=== PATIENT | male | born 1945 | race Caucasian/White ===

== ENCOUNTER 2019-02-01 13:02 | Day surgery (SDC) | payer MEDICARE, OTHER ==
[~2019-02-01] VITALS: Ht 177.8 cm; Wt 77.9 kg
[~2019-02-01 13:02] MED LIST: ASPI325 PO; ASPI81CH PO; Aspirin EC81 MG PO; CEFD300; CLOP75 PO; CYAN100 PO; Crestor20 MG PO; FISH OIL PO; FISH1000 PO; LUTEIN20 MG PO; METO25ER PO; MULT50L; MULVITMIND PO; Multiple Vitam1 EAC1 PO; NITR.4SL SL; SIMV40 PO; Sudogest60 MG PO; Toprol Xl25 MG PO; VITAMIN D-32000 UNIT PO; VITAMIN D31000 UNIT PO; Zocor20 MG PO
== END 2019-02-01 15:30 | disposition home or self-care (01) ==
LOC: ORSCSDS 13:02
PROVIDERS: Ophthalmology
PROC: 08RK3JZ Replacement of Left Lens with Synthetic Substitute, Percutaneous Approach (ICD-10-PCS; principal; 2019-02-01 14:30)
DX: H25.12 Age-related nuclear cataract, left eye (principal); H21.81 Floppy iris syndrome; I10 Essential (primary) hypertension; Z79.899 Other long term (current) drug therapy; Z79.82 Long term (current) use of aspirin
CPT/HCPCS: J2001; J2250; J3010; J7120; V2632

== ENCOUNTER 2019-05-17 10:16 | Inpatient (IN) | payer MEDICARE, OTHER ==
[~2019-05-17] VITALS: Ht 177.8 cm; Wt 80.6 kg
[2019-05-17 10:43] LABS: BASOPHILS ABSOLUTE AUTO 0.07 K/mm3 (0.00-0.23); BASOPHILS PERCENT AUTO 1 % (0-2); EOSINOPHILS ABSOLUTE AUTO 0.16 K/mm3 (0.00-0.68); EOSINOPHILS PERCENT AUTO 1 % (0-6); Hematocrit 35.6 % (37.0-53.0); Hemoglobin 11.8 g/dL (13.5-17.5); IMMATURE GRAN ABSOLUTE AUTO 0.06 K/mm3 (0.00-0.10); IMMATURE GRAN PERCENT AUTO 1 % (0-1); LYMPHOCYTES ABSOLUTE AUTO 1.84 K/mm3 (0.84-5.20); LYMPHOCYTES PERCENT AUTO 15 % (21-46); MONOCYTES ABSOLUTE AUTO 0.64 K/mm3 (0.16-1.47); MONOCYTES PERCENT AUTO 5 % (4-13); Mean Corpuscular HGB Conc 33.1 g/dL (31.5-36.5); Mean Corpuscular Volume 93 fL (80-100); Mean Platelet Volume 10.8 fL (9.1-12.4); NEUTROPHILS ABSOLUTE AUTO 9.73 K/mm3 (1.96-9.15); NEUTROPHILS PERCENT AUTO 78 % (41-73); Platelet Count 200 K/mm3 (150-400); RDW Coefficient Variation 12.8 % (11.7-14.2); RDW Standard Deviation 43.7 fL (35.1-46.3); Red Blood Cell Count 3.81 M/mm3 (4.30-5.90)
[2019-05-17 11:05] LABS: Alanine Aminotransfer (ALT/SGP 23 U/L (12-78); Albumin, Blood 3.4 g/dL (3.4-5.0); Albumin/Globulin Ratio 1.2 (0.8-1.8); Alk Phos 58 U/L (50-136); Anion Gap 8 mmol/L (6-16); Aspartate Aminotrans (AST/SGOT 22 U/L (12-37); Bilirubin, Total 0.6 mg/dL (0.1-1.0); Blood Urea Nitrogen 42 mg/dL (8-24); Bun/Creatinine Ratio 38.9 (12.0-20.0); CO2, Blood 26 mmol/L (21-32); Calcium, Blood 8.7 mg/dL (8.5-10.1); Chloride, Blood 108 mmol/L (98-108); Creatinine, Blood 1.08 mg/dL (0.60-1.20); Globulin, Blood 2.9 g/dL (2.2-4.0); Glomerular Filtration Rate >60 (60-); Glucose, Blood 158 mg/dL (70-99); Potassium, Blood 5.2 mmol/L (3.5-5.5); Sodium, Blood 142 mmol/L (136-145); Total Protein, Blood 6.3 g/dL (6.4-8.2); Troponin I 0.021 ng/mL (0.000-0.040)
[2019-05-17] MEDS ORDERED: FISH OIL 1,2001 EAC1 PO (13:00)
[2019-05-17] MEDS ORDERED: METAMUCIL0.4 GM PO (13:00)
[2019-05-17] MEDS ORDERED: Co Q-1010 MG PO (13:00)
[2019-05-17] MEDS ORDERED: DOCU100 PO (13:00)
[2019-05-17 13:17] LABS: Source, Urine Voided
[2019-05-17 13:21] LABS: Bilirubin, Urine Neg (Neg); Blood, Urine Neg (Neg); Glucose Qualitative, Urine Neg (Neg); Ketones, Urine 2+ (Neg); Leukocyte Esterase, Urine 1+ (Neg); Nitrite, Urine Neg (Neg); Protein, Urine Neg (Neg); Urobilinogen, Urine NORM (Normal)
[2019-05-17 14:02] LABS: Appearance, Urine Clear (Clear); Color, Urine Yellow (P-Yellow)
[2019-05-17 14:08] LABS: Bacteria Few /hpf; Red Blood Cells, Urine Not Seen /hpf (0-2); Squamous Epithelial Cells Rare /hpf (Few); White Blood Cells, Urine 0-2 /hpf (0-5)
[2019-05-17 19:27] LABS: Hematocrit 25.1 % (37.0-53.0); Hemoglobin 8.4 g/dL (13.5-17.5)
[2019-05-17 19:51] LABS: BASOPHILS ABSOLUTE AUTO 0.05 K/mm3 (0.00-0.23); BASOPHILS PERCENT AUTO 1 % (0-2); EOSINOPHILS ABSOLUTE AUTO 0.08 K/mm3 (0.00-0.68); EOSINOPHILS PERCENT AUTO 1 % (0-6); Hematocrit 25.2 % (37.0-53.0); Hemoglobin 8.3 g/dL (13.5-17.5); IMMATURE GRAN ABSOLUTE AUTO 0.02 K/mm3 (0.00-0.10); IMMATURE GRAN PERCENT AUTO 0 % (0-1); LYMPHOCYTES ABSOLUTE AUTO 2.42 K/mm3 (0.84-5.20); LYMPHOCYTES PERCENT AUTO 27 % (21-46); MONOCYTES ABSOLUTE AUTO 0.66 K/mm3 (0.16-1.47); MONOCYTES PERCENT AUTO 7 % (4-13); Mean Corpuscular HGB Conc 32.9 g/dL (31.5-36.5); Mean Corpuscular Volume 94 fL (80-100); NEUTROPHILS ABSOLUTE AUTO 5.89 K/mm3 (1.96-9.15); NEUTROPHILS PERCENT AUTO 65 % (41-73); Platelet Count 167 K/mm3 (150-400); RDW Coefficient Variation 12.9 % (11.7-14.2); RDW Standard Deviation 44.8 fL (35.1-46.3); Red Blood Cell Count 2.68 M/mm3 (4.30-5.90); White Blood Cell Count 9.12 K/mm3 (4.00-11.30)
[2019-05-17 20:02] LABS: Magnesium, Blood 1.8 mg/dL (1.6-2.4); Troponin I 0.049 ng/mL (0.000-0.040)
[2019-05-17 20:11] LABS: International Normalized Ratio 1.14; Prothrombin Time Results 11.9 Sec (9.7-11.5)
--- NOTE | 2019-05-17 22:10 | NUR ---
MD CALL AFTER REVIEWING THE CHART, AN ORDER WAS FOUND FOR A STAT GI CONSULT. THIS CHARGE NURSE CALLED THE CURRENT HOSPITALIST TO ADVISE THAT THE STAT ORDER WAS NOT CARRIED OUT BECAUSE THERE IS NO SCHEDULED GI COVERAGE THIS SHIFT. ADDITIONALLY, IT WAS COMMUNICATED THAT THE PT HAS NOT HAD ANY FURTHER COFFEE GROUND EMESIS, IS NOT HYPOTENSIVE (MAP: 69) AND WAS DENYING COMPLAINTS. THE HOSPITALIST WAS ENCOURAGED TO MAKE A [id number] CALL IF THE NEED WAS IDENTIFIED URGENT TO SEE IF A GI DOCTOR WOULD BE WILLING TO COME IN WHILE NOT BRICK AND TILE MAKING MACHINE OPERATOR. MAYELIN MCCLOUD STATED "IT CAN WAIT UNTIL MORNING UNLESS I DISCUSS THIS WITH EDGARD AND CALL YOU BACK TO LET YOU KNOW". NOTIFIED PRIMARY RN ANGELES TO PROCEED WITH ROUTINE AM CONSULT FOR Tuesday.
--- NOTE | 2019-05-17 22:29 | NUR ---
TRANSFER NOTE REPORT RECIEVED FROM MARY SULLIVAN AT APPROX 1935, PATIENT THEN TRANSFERED DOWN WITH BELONGINGS AND SEVERAL FAMILY MEMBERS. PATIENT ALERT AND JOKING WITH STAFF UPON TRANSFER TO THE UNIT. PATIENT AND FAMILY ORIENTED TO THE ROOM, UNIT, AND CALL LIGHT. PATIENT HAS HAD NO BM'S OR EMEISIS SINCE TRANSFER TO THE ROOM. PATIENT DENIES ANY JAW PAIN, DIZZINESS, OR LIGHT HEADEDNESS. DR BELL INTO SEE PATIENT AND TALK WITH PATIENT AND FAMILY. IV FLUIDS GIVEN PER ORDERS. PATIENT ABLE TO AMBULATE TO THE BATHROOM WITH SBA. PATIENT DID REPORT MILD CHEST DISCOMFORT AND A HEADACHE AFER AMBULATING, BOTH OF WHICH QUICKLY RESOLVED AFTER A FEW MINUTES OF REST. PATIENT CURRENTLY RECIEVING ONE UNIT OF PRBC'S AND APPEARS TO BE TOLERATING IT WELL. PATIENT APPEARS TO BE NAPING AT THIS TIME. PRESENT AT THE BEDSIDE. WILL CONTINUE TO MONITOR.
--- NOTE | 2019-05-18 00:06 | NUR ---
UPDATE PATIENT AND HAD BEEN EDUCATED THAT DUE TO PATIENT HAVING A LOW BLOOD PRESSURE'S A SAFF MEMEBER NEEDED TO BE WITH PATIENT BEFORE GETTING UP. RN WALKED IN TO FIND HAD ASSISTED PATIENT UP OUT OF BED AND PATIENT WAS STANDING AT THE BEDSIDE USING THE URINAL. ONCE PATIENT WAS DONE USING THE URINAL HE BECAME VERY PALE, CLAMMY, AND DIAPHORETIC AND STARTED TO GET VERY UNSTEADY ON HIS FEET. PATIENT ASSISTED BACK TO THE BED AND STAFF HELPED PATIENT TO LAY DOWN. CHARGE NURSE VALERIY CORTEZ NOTIFIED AND PRESENT IN ROOM AT THIS TIME. PATIENT ALERT BUT SLOW TO RESPOND. VITAL SIGNS OBTAINED AND CHARTED. PATIENT STATES THAT HE FEELS VERY TIRED NOW. PATIENT CURRENTLY RESTING IN BED, COLOR IS BETTER AND PATIENT IS LESS CLAMMY AND DIAPHORETIC. PATIENT REPORTS HE IS FEELING BETTER BUT HE IS STILL VERY TIRED. BOTH PATIENT AND EDUCATED, ONCE AGAIN, ON THE NEED TO WAIT FOR STAFF ASSSITANCE BEFORE GETTING UP AND THAT FROM NOW ON IT JO BE BEST IF PATIENT WAS BEDREST AND USED THE URINAL IN THE BED. BED ALARM ON. EDUCATION TO FAMILY AND PATIENT GIVEN. WILL CONTINUE TO MONITOR.
[2019-05-18 01:41] LABS: Hematocrit 24.5 % (37.0-53.0); Hemoglobin 8.1 g/dL (13.5-17.5)
[2019-05-18 01:45] LABS: Anion Gap 7 mmol/L (6-16); Blood Urea Nitrogen 59 mg/dL (8-24); CO2, Blood 23 mmol/L (21-32); Calcium, Blood 7.5 mg/dL (8.5-10.1); Chloride, Blood 117 mmol/L (98-108); Creatinine, Blood 0.92 mg/dL (0.60-1.20); Glomerular Filtration Rate >60 (60-); Glucose, Blood 102 mg/dL (70-99); Potassium, Blood 4.5 mmol/L (3.5-5.5); Sodium, Blood 147 mmol/L (136-145)
--- NOTE | 2019-05-18 02:10 | NUR ---
CALL TO DR ANTHONY CRUZ CALLED AND NOTIFIED OF THE HGB RESULTS AFTER THE TRANSFUSION OF THE ONE UNIT OF PRBC'S. NO NEW ORDERS RECIEVED.
[2019-05-18 05:36] LABS: Hematocrit 22.5 % (37.0-53.0); Hemoglobin 7.5 g/dL (13.5-17.5)
--- NOTE | 2019-05-18 06:50 | NUR ---
UPDATE ATTEMPTED TO CALL DR HERNANDEZ DUE TO HER HAVING ALREADY PUT AN ORDER IN FOR A BLOOD TRANSFUSION. UNABLE TO GET AHOLD OF HER. DR CRUZ WAS THEN CALLED AND NOTIFIED THAT PATIENT'S HEART RATE IS RUNNING IN THE 130'S-140'S WITH MINIMAL MOVEMENT, EVEN WHEN PATIENT SIMPLY USING THE URINAL IN THE BED. ALSO NOTIFIED THT PATIENT REPORTS BEING VERY TIRED AND FEELING WEAK. DR CRUZ ALSO NOTIFIED THAT THERE IS NO GI COVERGE UNTIL TONIGHT. NO ORDERS GIVEN AT THIS TIME.
--- NOTE | 2019-05-18 07:17 | NUR ---
SHIFT SUMMARY SECOND UNIT OF PRBC'S STARTED PER ORDERS. PATIENT CURRENTLY APPEARS TO BE RESTING IN BED. PATIENT PROVIDED WITH A FAN FOR COMFORT AND SCD'S REMOVED PER PATIENT REQUEST FOR A BREAK. CALL LIGHT WITHIN REACH. REPORT GIVEN TO ONCOMING RN.
--- NOTE | 2019-05-18 07:40 | NUR ---
INITIAL ASSESSMENT: PATIENT IS RESTING SUPME WITHH EYES CLOSED. PT EASILY AWAKENS WITH VERBAL STIUMLI. PT DENIES PAIN OR NAUSEA AT THIS TIME. PT STATES HE IS UNABLE TO MOVE AROUND IN THE BED WITHOUT GETTING SOB OR DIZZY. PER NOC RN PT WAS ATTEMPTING TO VOID AT THE BEDSIDE AND HAD A SYNCOPAL EPISODE. PT DENEIS CHEST PAIN AT THIS TIME. HRR, ST IN THE 120S. PER TELEMETRY WHEN PATIENT IS MOVING AROUND IN BED HIS HEART RATE IS GOING UP INTO THE 130S-140S. LS CTA, BIOX WNL ON RA. SOB WITH ANY EXERTION. PT DENIES COUGH. BT+. PPP. NO EDEMA NOTED. BLOOD PRESURE IS LOW,89/55. UNIT OF PRBCS INFUSING, PT TOLERATING WELL. PT DENIES NEEDS AT THIS TIME. CALL LIGHT IN REACH, WILL CONTINUE TO MONITOR.
--- NOTE | 2019-05-18 07:50 | NUR ---
CALL PLACED TO DR. HERNANDEZ FOR UPDDATE ON PTS CONDITION. NOC RN ATTEMPTED TO CALL IN GI CONSULT, PER ANSWERING SERVICE THEY WILL NOT ACCEPT THE CONSULT BECAUSE THERE IS NO PHYSCIAN FORMING PROCESS LINE WORKER UNTIL TONIGHT. DR. HERNANDEZ WOULD LIKE ME TO CALL THE OFFICE WHEN IT OPENS AND CALRIFY WHICH GI PHYSCIAN IS FORMING PROCESS LINE WORKER AND WHEN.
--- NOTE | 2019-05-18 08:15 | NUR ---
CALL PLACED TO DR. ARELLANO'S OFFICE, THEY INFORMED THIS RN DDR. ARELLANO IS ROOF PAINTER ALL DAY. CALL PLACED TO DDR. ARELLANO'S CELL PHONE, RN ANSWERED, STATES MD IS IN THE MIDDLE OF A PROCEDURE. CONSULT INFO GIVEN TO RN. I ALSO INFORMED THE RN THE PATIENT IS VERY SYMPTOMATIC WITH ANY MOVEMENT. FAMILY IS A BEDSIDE, VERY CONCERNED. FAMILY UPDATED RE:PLAN OF CARE. PT IS RESTING WITH EYES CLOSED, RESP E/U. PT DENIES NEEDS AT THIS TIME. CALL LIGHT IN REACH.
--- NOTE | 2019-05-18 08:30 | NUR ---
DR. HERNANDEZ IS HERE TO SEE THE PATIENT. SEE NEW ORDERS
--- NOTE | 2019-05-18 09:45 | NUR ---
1ST UNIT OF PRBC'S DONE INFUSING. LAB CALLED TO COME AND DRAW THE PATIENTS LABS. FAMILY AT BEDSIDE, STILL CONCERNED. CALL PLACED TO [facility] TO FIND OUT WHEN DR. ARELLANO MAY BE BY TO SEE THE PATIENT. LUÍS FROM [facility] INFORMED ME DR. ARELLANO HAS OUTPATIENT PROCEDURES SCHEDULED UNTIL AROUND 2 PM TOADY. I DISCUSSED THIS WITH THE FAMILY. PT IS TEARFUL AT THIS TIME. PT REASSURED. FAMILY AND MEMBERS OF HIS CATHOLIC AT THE BEDSIDE.
--- NOTE | 2019-05-18 10:15 | NUR ---
IN COLLBORATION WITH THE ICU PLASTIC EXTRUDING MACHINE OPERATOR THEY ARE AGREEABLE TO TAKE THIS PATIENT INTO ICU 4. BECAUSE THE PATIENT IS VERY SYMPTOMATIC, WE FEEL MORE COMFORTABLE WITH THE PATIENT BEING WATCHED CLOSER.
--- NOTE | 2019-05-18 10:35 | NUR ---
LAB AT BEDSIDE TO DRAW. AFTER LABS DRAWN PT REQUESTING TO USE BED JOLLEY. PT HAD A LARGE LIQUID BLACK TARRY STOOL. REPORT GIVEN TO SURI HERNANDEZ. PT TAKEN TO ICU 4.
[2019-05-18 11:04] LABS: Hematocrit 25.6 % (37.0-53.0); Hemoglobin 8.3 g/dL (13.5-17.5)
--- NOTE | 2019-05-18 11:20 | NUR ---
ICU TRANSFER PT TO ICU 4 FROM PCU 4 VIA BED. PT DROWSY, AROUSES TO VERBAL STIMULI. PT TRANSFERRED TO ICU BED VIA SLIDER SHEET. PT DYSPNEIC WITH EXERTION. MONITOR SHOWS SINUS TACH WITH HR 120'S, SYSTOLIC PRESSURE 70'S. SPO2 97% ON ROOM AIR. LUNG SOUNDS CLEAR. 3RD UNIT OF PRBC STARTED. PROTONIX GTT INFUSING AT 10ML/HR. PTS TO BEDSIDE. WILL CONTINUE TO MONITOR CLOSELY.
--- NOTE | 2019-05-18 11:20 | NUR ---
TRANSFER TO MED: REPORT GIVEN TO ANN HERNANDEZ ON MEDICAL FLOOR FOR PT TO BE TRANSFERED. PT OUT THE DOOR.
--- NOTE | 2019-05-18 11:34 | NUR ---
HYPOTENSION CALL TO DR. HERNANDEZ WITH SBP IN 70'S. ORDERS RECEIVED FOR 500ML FLUID BOLUS AND CONSULT MILLING PLANER OPERATOR. DR ALVAREZ NOTIFIED. PT UPDATED ON PLAN OF CARE.
--- NOTE | 2019-05-18 12:15 | NUR ---
CALCIUM ON HOLD AT THIS TIME DUE TO LIMITED IV ACCESS AND COMPATIBILITY ISSUES. SPOKE WITH DR ALVAREZ AND WOULD RATHER HAVE BLOOD AND PROTONIX INFUSING AT THIS TIME. WILL ADMINISTER WHEN ABLE.
--- NOTE | 2019-05-18 12:16 | NUR ---
DR ANTONIO ALVAREZ TO BEDSIDE TO ASSESS PT. DISCUSSED PLAN OF CARE WITH PT AND FAMILY AT BEDSIDE.
--- NOTE | 2019-05-18 12:22 | NUR ---
BLOOD TRANSFUSION RATE INCREASED TO 500ML/HR PER DR ALVAREZ. PLAN TO RE-CHECK H&H 30 MIN AFTER BLOOD COMPLETE. LUNG SOUNDS REMAIN CLEAR. PT CONTINUES TO DENY SHORTNESS OF BREATH. WILL CONTINUE TO MONITOR CLOSELY.
--- NOTE | 2019-05-18 12:26 | NUR ---
CALL TO DR. ARELLANO TO UPDATE ON PT'S CONDITION. STATES HE WILL COME SEE THE PT.
--- NOTE | 2019-05-18 13:14 | NUR ---
DR. ARELLANO TO BEDSIDE TO EVAL PT AND DISCUSS PLAN OF CARE WITH PT AND PT'S FAMILY MEMBERS AT BEDSIDE.
--- NOTE | 2019-05-18 13:20 | NUR ---
DR. ARELLANO PLAN: AFTER DISCUSSION WITH PT AND FAMILY ABOUT RISKS/BENEFITS OF ENDOSCOPY, PLAN IS FOR ENDOSCOPY ON TUESDAY TO GIVE CHANCE TO CLEAR PLAVIX AND ASPIRIN THAT PT RECEIVED YESTERDAY. PLAN TO MANAGE PT WITH BLOOD TRANSFUSIONS NECESSARY WELL FLUID BOLUSES TO MAINTAIN BP UNLESS PT SHOWS SIGNS OF ZULEMA BLEEDING. MONITOR H&H Q6H. PT MAY HAVE WATER AD REAGAN AT THIS POINT.
[2019-05-18 13:47] LABS: Hematocrit 26.4 % (37.0-53.0); Hemoglobin 8.7 g/dL (13.5-17.5)
--- NOTE | 2019-05-18 14:49 | NUR ---
BM/HYPOTENSION BP DOWN TO 80 SYSTOLIC. PT JUST HAD LARGE LOOSE RUST COLORED BM. CALL TO DR ALVAREZ. ORDERS RECEIVED FOR 2 UNITS PRBC INFUSION NOW. CHECK H&H AFTER.
--- NOTE | 2019-05-18 17:41 | NUR ---
SHIFT SUMMARY PT CURRENTLY RECEIVING 3RD UNIT OF BLOOD SINCE ARRIVAL TO ICU. VITAL SIGNS STABLE WHILE RECEIVING BLOOD. PT CONTINUES TO DENY ANY SHORTNESS OF BREATH OR PAIN. PT HAD 1 BM SINCE BEING IN ICU WHICH WAS RUST COLORED. PT HAS HAD NO NAUSEA OR EMESIS. NS INFUSING AT 125ML/HR AND PROTONIX GTT AT 10ML/HR. PLAN FOR ENDOSCOPY TUESDAY UNLESS ZULEMA BLEEDING OCCURS. WILL CONTINUE TO MONITOR PT AND GIVE HANDOFF REPORT TO ONCOMING RN.
--- NOTE | 2019-05-18 20:30 | NUR ---
PT RESTING IN BED. NO COMPLAINTS. STATES HE FEELS BETTER THAN HE DID EARLIER IN THE DAY. SKIN IS PINK AND WARM. LAB HERE TO DRAW H&H. NO SIGNS OF BLEEDING THUS FAR. FAMILY AT BEDSIDE.
[2019-05-18 21:09] LABS: Hematocrit 31.4 % (37.0-53.0); Hemoglobin 10.3 g/dL (13.5-17.5)
[2019-05-19 01:16] LABS: Hematocrit 28.2 % (37.0-53.0); Hemoglobin 9.6 g/dL (13.5-17.5)
[2019-05-19 05:35] LABS: Albumin, Blood 2.1 g/dL (3.4-5.0); Anion Gap 6 mmol/L (6-16); Blood Urea Nitrogen 47 mg/dL (8-24); Bun/Creatinine Ratio 48.8 (12.0-20.0); CO2, Blood 20 mmol/L (21-32); Calcium, Blood 7.2 mg/dL (8.5-10.1); Chloride, Blood 122 mmol/L (98-108); Creatinine, Blood 0.96 mg/dL (0.60-1.20); Glomerular Filtration Rate >60 (60-); Glucose, Blood 94 mg/dL (70-99); Phosphorus, Blood 1.8 mg/dL (2.5-4.9); Sodium, Blood 148 mmol/L (136-145)
--- NOTE | 2019-05-19 05:50 | NUR ---
SUMMARY PT RESTING IN BED. HAD ONE BLACK STOOL AT SHIFT CHANGE AND NO OTHERS SINCE. VITAL SIGNS ARE IMPROVED. NO COMPLAINTS FROM THE PT.
[2019-05-19 06:48] LABS: BASOPHILS ABSOLUTE AUTO 0.04 K/mm3 (0.00-0.23); BASOPHILS PERCENT AUTO 0 % (0-2); EOSINOPHILS ABSOLUTE AUTO 0.11 K/mm3 (0.00-0.68); EOSINOPHILS PERCENT AUTO 1 % (0-6); Hematocrit 24.5 % (37.0-53.0); Hemoglobin 8.3 g/dL (13.5-17.5); IMMATURE GRAN ABSOLUTE AUTO 0.06 K/mm3 (0.00-0.10); IMMATURE GRAN PERCENT AUTO 1 % (0-1); LYMPHOCYTES ABSOLUTE AUTO 2.07 K/mm3 (0.84-5.20); LYMPHOCYTES PERCENT AUTO 20 % (21-46); MONOCYTES ABSOLUTE AUTO 0.83 K/mm3 (0.16-1.47); MONOCYTES PERCENT AUTO 8 % (4-13); Mean Corpuscular HGB Conc 33.9 g/dL (31.5-36.5); Mean Corpuscular Volume 86 fL (80-100); Mean Platelet Volume 10.9 fL (9.1-12.4); NEUTROPHILS ABSOLUTE AUTO 7.14 K/mm3 (1.96-9.15); NEUTROPHILS PERCENT AUTO 70 % (41-73); Platelet Count 93 K/mm3 (150-400); RDW Coefficient Variation 16.4 % (11.7-14.2); RDW Standard Deviation 50.9 fL (35.1-46.3); Red Blood Cell Count 2.86 M/mm3 (4.30-5.90); White Blood Cell Count 10.25 K/mm3 (4.00-11.30)
--- NOTE | 2019-05-19 11:25 | NUR ---
PT AWAKE IN BED THIS AM AT 0700, PT ASSESSED AT THIS TIME. PT DENIES ALL COMPLAINTS, DENIES C/O PAIN, NAUSEA. NO SIGNS OF ACUTE BLEEDING. BP ON HYPOTENSIVE SIDE BUT STABLE. PROTONIX GTT INFUSING. DR ARELLANO PLACED ORDERS FOR CLEAR LIQUIDS. PT TO HAVE EGD TOMORROW. DR ALVAREZ IN THIS AM; NAPHOS REPLACED, FLUIDS CHANGED TO LR. LAB UNABLE TO DRAW; WILL PLACE POWERGLIDE. LIPITOR HELD IT CAUSES MUSCLE PAIN, TOPROL HELD FOR LOW BP; DR KAUR NOTIFIED.
[2019-05-19 12:17] LABS: Hemoglobin 7.8 g/dL (13.5-17.5)
[2019-05-19 15:59] LABS: Hematocrit 22.8 % (37.0-53.0); Hemoglobin 7.8 g/dL (13.5-17.5)
--- NOTE | 2019-05-19 18:39 | NUR ---
PT TOLERATED CLEAR LIQUIDS TODAY. BP SLIGHTLY LOWER AT TIMES BUT STABLE WITH A MAP >65. PT DENIED ANY C/O PAIN OR NAUSEA. NO BM THIS SHIFT, NO SIGNS OF ACUTE BLEEDING. PT TO HAVE ICE AND WATER ONLY AFTER 2100, THEN NPO AFTER 0700 FOR EGD TOMORROW. PT RESTING IN BED NOW W/O COMPLAINTS.
--- NOTE | 2019-05-19 21:15 | NUR ---
PT RESTING IN BED. NO COMPLAINTS OR REQUESTS. DENIES PAIN AND SOB. NO SIGN OF BLEEDING OR DISTRESS.
[2019-05-19 21:48] LABS: Hematocrit 21.8 % (37.0-53.0); Hemoglobin 7.4 g/dL (13.5-17.5)
[2019-05-20 04:07] LABS: BASOPHILS ABSOLUTE AUTO 0.04 K/mm3 (0.00-0.23); BASOPHILS PERCENT AUTO 1 % (0-2); EOSINOPHILS ABSOLUTE AUTO 0.18 K/mm3 (0.00-0.68); EOSINOPHILS PERCENT AUTO 2 % (0-6); Hemoglobin 6.9 g/dL (13.5-17.5); IMMATURE GRAN ABSOLUTE AUTO 0.05 K/mm3 (0.00-0.10); IMMATURE GRAN PERCENT AUTO 1 % (0-1); LYMPHOCYTES ABSOLUTE AUTO 1.85 K/mm3 (0.84-5.20); LYMPHOCYTES PERCENT AUTO 25 % (21-46); MONOCYTES ABSOLUTE AUTO 0.66 K/mm3 (0.16-1.47); MONOCYTES PERCENT AUTO 9 % (4-13); Mean Corpuscular HGB 30.1 pg (26.0-34.0); Mean Corpuscular HGB Conc 34.5 g/dL (31.5-36.5); Mean Corpuscular Volume 87 fL (80-100); Mean Platelet Volume 10.9 fL (9.1-12.4); NEUTROPHILS PERCENT AUTO 63 % (41-73); Platelet Count 82 K/mm3 (150-400); RDW Coefficient Variation 16.4 % (11.7-14.2); RDW Standard Deviation 51.5 fL (35.1-46.3); Red Blood Cell Count 2.29 M/mm3 (4.30-5.90); White Blood Cell Count 7.48 K/mm3 (4.00-11.30)
[2019-05-20 04:21] LABS: Anion Gap 3 mmol/L (6-16); Blood Urea Nitrogen 19 mg/dL (8-24); Bun/Creatinine Ratio 20.2 (12.0-20.0); CO2, Blood 26 mmol/L (21-32); Calcium, Blood 7.3 mg/dL (8.5-10.1); Chloride, Blood 119 mmol/L (98-108); Creatinine, Blood 0.94 mg/dL (0.60-1.20); Glomerular Filtration Rate >60 (60-); Glucose, Blood 101 mg/dL (70-99); Magnesium, Blood 1.7 mg/dL (1.6-2.4); Potassium, Blood 3.5 mmol/L (3.5-5.5); Sodium, Blood 148 mmol/L (136-145)
--- NOTE | 2019-05-20 06:25 | NUR ---
SUMMARY PT RESTING IN BED. NO COMPLAINTS. NO SIGN OF BLEEDING. CALLED DR. ALVAREZ THIS AM ABOUT H&H DROP. NEW ORDERS FOR 1 UNIT OF PRBC'S RECEIVED. VITAL SIGNS HAVE BEEN STABLE.
--- NOTE | 2019-05-20 07:16 | NUR ---
ASSUMED CARE REPORT FROM MARY GUERRERO. PATIENT IS AWAKE, DENIES PAIN. 1 UNIT PRBC'S STARTED. NPO FOR EGD THIS MORNING.
--- NOTE | 2019-05-20 09:20 | NUR ---
MD VISIT DR. HERNANDEZ IN. FAMILY AT BEDSIDE
--- NOTE | 2019-05-20 09:38 | NUR ---
BERTHA RN, JONG RN AND JADA RN FROM [facility] HERE TO SET UP FOR EGD
--- NOTE | 2019-05-20 10:07 | NUR ---
05/20/19 Ale Elias History, Chart, Medications and Allergies reviewed before start of procedure.PATIENT DETERMINED TO BE ASA APPROPRIATE FOR PROPOFOL SEDATION PRIOR TO START OF PROCEDURE BY .MONITOR INTACT WITH CONTINUOUS PULSE OXIMETRY AND INTERMITTENT BP.3-LEAD EKG REVIEWED WITH PHYSICIAN PRIOR TO START OF PROCEDURE.O2 VIA N/C INTACT THROUGHOUT SEDATION/PROCEDURE.
--- NOTE | 2019-05-20 10:14 | NUR ---
EGD COMPLETED BY DR. ARELLANO. ULCER FOUND. DIET ADVANCED. STATUS CHANGED TO MED/NO TELE
--- NOTE | 2019-05-20 14:13 | NUR ---
REPORT GIVEN TO MARY VIRK. PATIENT MOVING TO 218 IN
--- NOTE | 2019-05-20 14:44 | NUR ---
PT TRANSFERED TO SURGICAL FLOOR FROM ICU AT THIS TIME. REPORTS NO DIZZINESS, N/V, OR PAIN. LUNG SOUNGS CLEAR. PERSONAL BELONGINGS IN RM WITH PT.
--- NOTE | 2019-05-20 16:45 | NUR ---
SHIFT SUMMARY PT TO SURGICAL FLOOR FROM ICU TODAY. REPORTS NO DIZZINESS, NAUSEA. PT INDEPENDENT IN RM. REPORTS FEELING MUCH BETTER THAN EARLIER TODAY. FAMILY IN RM. PT BEEN ASSISTED WITH ADL'S PRN.
[2019-05-21 05:32] LABS: BASOPHILS ABSOLUTE AUTO 0.03 K/mm3 (0.00-0.23); BASOPHILS PERCENT AUTO 0 % (0-2); EOSINOPHILS PERCENT AUTO 4 % (0-6); Hematocrit 24.8 % (37.0-53.0); Hemoglobin 8.1 g/dL (13.5-17.5); IMMATURE GRAN ABSOLUTE AUTO 0.05 K/mm3 (0.00-0.10); IMMATURE GRAN PERCENT AUTO 1 % (0-1); LYMPHOCYTES ABSOLUTE AUTO 1.52 K/mm3 (0.84-5.20); LYMPHOCYTES PERCENT AUTO 22 % (21-46); MONOCYTES ABSOLUTE AUTO 0.64 K/mm3 (0.16-1.47); MONOCYTES PERCENT AUTO 9 % (4-13); Mean Corpuscular HGB Conc 32.7 g/dL (31.5-36.5); Mean Corpuscular Volume 89 fL (80-100); NEUTROPHILS PERCENT AUTO 64 % (41-73); Platelet Count 95 K/mm3 (150-400); RDW Coefficient Variation 15.7 % (11.7-14.2); RDW Standard Deviation 51.1 fL (35.1-46.3); Red Blood Cell Count 2.79 M/mm3 (4.30-5.90); White Blood Cell Count 7.04 K/mm3 (4.00-11.30)
--- NOTE | 2019-05-21 05:55 | NUR ---
NEW ORDER PER DR. COHEN TO TRANSFUSE 1 UNIT RBC'S WITH INDICATION OF HGB <8.0. HOWEVER, HGB THIS MORNING STABLE AT 8.1. CALL PLACED TO HOSPITALIST TO CLARIFY ORDER. WILL CANCEL ORDER TO TRANSFUSE PER . PT'S VS STABLE T/O SHIFT.
--- NOTE | 2019-05-21 06:38 | NUR ---
SHIFT SUMMARY: PT STABLE THROUGHOUT SHIFT. VS WNL. INDEPENDENT IN ROOM. VOIDING WELL. PT REPORTS STILL FEELING WEAK WITH LONG DISTANCE AMBULATION. HGB 8.1 THIS MORNING. NEW ORDER FOR H&H LABS Q6. NO S/SX OF BLEEDING.
[2019-05-21 11:45] LABS: Hematocrit 26.8 % (37.0-53.0); Hemoglobin 8.8 g/dL (13.5-17.5)
[2019-05-21 12:05] LABS: Albumin, Blood 2.6 g/dL (3.4-5.0); Anion Gap 5 mmol/L (6-16); Blood Urea Nitrogen 13 mg/dL (8-24); Bun/Creatinine Ratio 14.8 (12.0-20.0); CO2, Blood 25 mmol/L (21-32); Calcium, Blood 8.2 mg/dL (8.5-10.1); Chloride, Blood 115 mmol/L (98-108); Creatinine, Blood 0.88 mg/dL (0.60-1.20); Glomerular Filtration Rate >60 (60-); Glucose, Blood 110 mg/dL (70-99); Magnesium, Blood 2.1 mg/dL (1.6-2.4); Phosphorus, Blood 2.8 mg/dL (2.5-4.9); Potassium, Blood 3.8 mmol/L (3.5-5.5); Sodium, Blood 145 mmol/L (136-145)
--- NOTE | 2019-05-21 13:12 | NUR ---
PT REPORTED ONE BM. BM WAS DARK, BLACK WITH SOME RED AROUND IT IN THE TOILET. PT COMPLAINT OF NO DIZZINESS OR LIGHT HEADEDNESS.
--- NOTE | 2019-05-21 17:36 | NUR ---
SHIFT SUMMARY PT ADMITTED FOR UPPER GI BLEED. ONE STOOL TODAY, BLACK WITH SOME RED. NO COMPLAINTS OF DIZZINESS OR FEELING LIGHT HEADED. C/O SMALL HEADACHE IN THE AM, PRN TYLENOL EFFECTIVE. PATIENT STATES FEELING MUCH BETTER. AMBULATING INDEPENDENTLY IN THE MARKS DURING SHIFT. H&H ELEVATED TO 8.8, REPEAT CHECK AT 1930 PER MD. PATIENT HAD GOOD APPETITE. ALERT AND ORIENTED DURING SHIFT.
[2019-05-21 19:35] LABS: Hematocrit 26.2 % (37.0-53.0); Hemoglobin 8.5 g/dL (13.5-17.5)
[2019-05-22 04:37] LABS: Hematocrit 25.9 % (37.0-53.0); Hemoglobin 8.5 g/dL (13.5-17.5)
--- NOTE | 2019-05-22 05:02 | NUR ---
SHIFT SUMMARY PT EATING AND DRINKING WELL. PT BEEN ASSISTED WITH ADL'S PRN. PT IND. PT MED FOR VAZQUEZ THIS AM, OTHERWISE SEEMED TO REST WELL OFF AND ON.
[2019-05-22] MEDS ORDERED: OMEPRAZOLE20 MG PO (11:45)
--- NOTE | 2019-05-22 12:28 | NUR ---
DR. ARELLANO NOTIFIED THAT PT HAS HAD SOME RESIDUAL BLACK TARRY STOOLS. DR. ARELLANO STATED TO CONTINUE WITH DISCHARGE HE EXPECTED PT TO HAVE SOME RESIDUAL BLOOD IN HIS STOOL. WILL CONTINUE WITH DISCHARGE PLANNED.
--- NOTE | 2019-05-22 12:49 | NUR ---
DISCHARGE PT PROVIDED WITH WRITTEN AND VERBAL DISCHARGE INSTRUCTIONS. PT WAS EDUCATED TO MONITOR STOOLS AND HE IS AWARE THAT HE MAY CONTINUE TO HAVE BLACK TARRY STOOLS FOR 4-5 DAYS. BUT TO NOTIFY HIS DOCTOR IF THIS DOES NOT SUBSIDE OR GETS WORSE. PT AND FAMILY REPORTED UNDERSTANDING INSTRUCTIONS. PT REQUESTED TO AMBULATE INSTEAD OF GOING OUT IN A W/C. PT PLEASED WITH DISCHARGE PLAN.
== END 2019-05-22 12:45 | disposition home or self-care (01) | DRG 377 ==
LOC: ER 10:16 → PCU 10:17 → MEDS 10:17 → PCU 19:33 → ICUE 05-18 05:49 → SURS 05-18 05:49 → ICUE 05-18 11:18 → SURS 05-20 14:44
PROVIDERS: Emergency Medicine; Internal Medicine; Internal Medicine Critical Care Medicine; Internal Medicine Gastroenterology; Nurse Practitioner Acute Care; ADMIT Internal Medicine
PROC: 30233N1 Transfusion of Nonautologous Red Blood Cells into Peripheral Vein, Percutaneous Approach (ICD-10-PCS; 2019-05-17)
PROC: 0DB68ZX Excision of Stomach, Via Natural or Artificial Opening Endoscopic, Diagnostic (ICD-10-PCS; principal; 2019-05-20 09:30)
DX: K25.4 Chronic or unspecified gastric ulcer with hemorrhage (principal); R57.8 Other shock; I21.A1 Myocardial infarction type 2; D62 Acute posthemorrhagic anemia; E87.0 Hyperosmolality and hypernatremia; E87.2 Acidosis; Z79.82 Long term (current) use of aspirin; Z87.891 Personal history of nicotine dependence; I25.10 Atherosclerotic heart disease of native coronary artery without angina pectoris; I95.9 Hypotension, unspecified; E86.0 Dehydration; K59.09 Other constipation; M19.90 Unspecified osteoarthritis, unspecified site; E83.51 Hypocalcemia; E78.00 Pure hypercholesterolemia, unspecified; D12.6 Benign neoplasm of colon, unspecified; E83.39 Other disorders of phosphorus metabolism; D69.6 Thrombocytopenia, unspecified; Z95.5 Presence of coronary angioplasty implant and graft; T39.015A Adverse effect of aspirin, initial encounter
CPT/HCPCS: 36415; 36430; 71046; 80048; 80053; 80069; 81001; 82330; 83735; 84100; 84484; 85014; 85018; 85025; 85610; 85730; 86850; 86900; 86901; 86923; 87086; 88305; 88342; 93005; 93010; 93306; 96360; 96361; 96376; 99285-25; A9270; C1751; C9113; G0378; J0610; J1650; J2704; J7030; J7040; J7050; J7060; J7120; P9016

== ENCOUNTER 2019-05-24 21:47 | Emergency (ER) | payer OTHER, MEDICARE ==
[~2019-05-24] VITALS: Ht 177.8 cm; Wt 76.2 kg
[~2019-05-24 21:47] MED LIST changes: +Co Q-1010 MG PO; +DOCU100 PO; +FISH OIL 1,2001 EAC1 PO; +METAMUCIL0.4 GM PO; +OMEPRAZOLE20 MG PO
[2019-05-24 22:40] LABS: BASOPHILS ABSOLUTE AUTO 0.06 K/mm3 (0.00-0.23); BASOPHILS PERCENT AUTO 1 % (0-2); EOSINOPHILS ABSOLUTE AUTO 0.43 K/mm3 (0.00-0.68); EOSINOPHILS PERCENT AUTO 6 % (0-6); Hematocrit 29.7 % (37.0-53.0); Hemoglobin 9.6 g/dL (13.5-17.5); IMMATURE GRAN ABSOLUTE AUTO 0.05 K/mm3 (0.00-0.10); IMMATURE GRAN PERCENT AUTO 1 % (0-1); LYMPHOCYTES PERCENT AUTO 25 % (21-46); MONOCYTES PERCENT AUTO 10 % (4-13); Mean Corpuscular HGB 30.1 pg (26.0-34.0); Mean Corpuscular HGB Conc 32.3 g/dL (31.5-36.5); Mean Platelet Volume 10.8 fL (9.1-12.4); NEUTROPHILS ABSOLUTE AUTO 3.86 K/mm3 (1.96-9.15); NEUTROPHILS PERCENT AUTO 57 % (41-73); Platelet Count 185 K/mm3 (150-400); RDW Coefficient Variation 15.6 % (11.7-14.2); RDW Standard Deviation 51.8 fL (35.1-46.3); Red Blood Cell Count 3.19 M/mm3 (4.30-5.90)
[2019-05-24 22:42] LABS: Mean Corpuscular Volume 93 fL (80-100)
[2019-05-24 22:56] LABS: Anion Gap 7 mmol/L (6-16); Blood Urea Nitrogen 16 mg/dL (8-24); CO2, Blood 24 mmol/L (21-32); Calcium, Blood 8.1 mg/dL (8.5-10.1); Chloride, Blood 111 mmol/L (98-108); Creatinine, Blood 0.94 mg/dL (0.60-1.20); Glomerular Filtration Rate >60 (60-); Glucose, Blood 87 mg/dL (70-99); Potassium, Blood 4.1 mmol/L (3.5-5.5); Sodium, Blood 142 mmol/L (136-145)
== END 2019-05-25 00:14 | disposition home or self-care (01) ==
LOC: ER 21:47
PROVIDERS: Emergency Medicine
DX: D50.0 Iron deficiency anemia secondary to blood loss (chronic) (principal); R03.1 Nonspecific low blood-pressure reading; I25.10 Atherosclerotic heart disease of native coronary artery without angina pectoris; Z85.828 Personal history of other malignant neoplasm of skin; Z79.899 Other long term (current) drug therapy
CPT/HCPCS: 36415; 80048; 85025; 93005; 93010; 99283-25

== ENCOUNTER 2019-07-09 09:12 | Day surgery (SDC) | payer MEDICARE, OTHER ==
[~2019-07-09] VITALS: Ht 177.8 cm; Wt 77.3 kg
[~2019-07-09 09:12] MED LIST changes: +CLOP75; +Crestor20 MG; +EZET10; +FISH OIL + D31 EACH; +NITR.4SL; +PANT40
== END 2019-07-09 11:47 | disposition home or self-care (01) ==
LOC: ORSCSDS 09:12
PROVIDERS: Internal Medicine Gastroenterology
PROC: 0DBP8ZX Excision of Rectum, Via Natural or Artificial Opening Endoscopic, Diagnostic (ICD-10-PCS; principal; 2019-07-09 10:30)
PROC: 0DB48ZX Excision of Esophagogastric Junction, Via Natural or Artificial Opening Endoscopic, Diagnostic (ICD-10-PCS; principal; 2019-07-09 10:30)
DX: Z87.11 Personal history of peptic ulcer disease (principal); D12.8 Benign neoplasm of rectum; K57.30 Diverticulosis of large intestine without perforation or abscess without bleeding; Z86.010 Personal history of colon polyps; Z12.11 Encounter for screening for malignant neoplasm of colon; I25.10 Atherosclerotic heart disease of native coronary artery without angina pectoris; Z87.891 Personal history of nicotine dependence; Z79.01 Long term (current) use of anticoagulants; Z79.899 Other long term (current) drug therapy
CPT/HCPCS: 88305; J2704; J7120

== ENCOUNTER → 2020-07-01 | Outpatient (CLI) | payer MEDICARE, OTHER | END | disposition home or self-care (01) | LOC: LAB SHORT 07:52 → PLD 07:52 | DX: D22.71 Melanocytic nevi of right lower limb, including hip (principal) | CPT/HCPCS: 88305 ==

== ENCOUNTER 2021-06-24 07:39 | Day surgery (SDC) | payer MEDICARE, OTHER ==
[~2021-06-24] VITALS: Ht 177.8 cm; Wt 77.9 kg
--- NOTE | 2021-06-24 08:09 | NUR ---
06/24/21 0809 Catrina Allen TETRACAINE AND PLEDGET PLACED IN THE RIGHT EYE BY [facility].ANABELLA
== END 2021-06-24 09:37 | disposition home or self-care (01) ==
LOC: ORSCSDS 07:39
PROVIDERS: Ophthalmology
PROC: 08RJ3JZ Replacement of Right Lens with Synthetic Substitute, Percutaneous Approach (ICD-10-PCS; principal; 2021-06-24 09:00)
DX: H25.11 Age-related nuclear cataract, right eye (principal); H21.81 Floppy iris syndrome; I10 Essential (primary) hypertension; I25.10 Atherosclerotic heart disease of native coronary artery without angina pectoris; E78.5 Hyperlipidemia, unspecified; Z79.899 Other long term (current) drug therapy; Z79.02 Long term (current) use of antithrombotics/antiplatelets
CPT/HCPCS: J2001; J2250; J3010; J3301; J7040; V2632

== ENCOUNTER 2024-10-17 08:01 | Day surgery (SDC) | payer MEDICARE, OTHER ==
[~2024-10-17] VITALS: Ht 177.8 cm; Wt 76.9 kg
[2024-10-17] MEDS ORDERED: CO Q10100 MG (08:21)
[2024-10-17] MEDS ORDERED: CRANBERRY (08:21)
[2024-10-17] MEDS ORDERED: ERGO50000 (08:21)
[2024-10-17] MEDS ORDERED: DOCU100 (08:21)
[2024-10-17] MEDS ORDERED: MELATONIN5 M1 (08:22)
[2024-10-17] MEDS ORDERED: MAG GLYCINATE100 MG (08:22)
[2024-10-17] MEDS ORDERED: propofoL 50 ML IV ONE (08:23)
[2024-10-17] MEDS ORDERED: VITAMIN B-650 MG (08:23)
[2024-10-17] MEDS ORDERED: Lactated Ringer's 1,000 ML IV ONE ×2 (08:29→09:09)
[2024-10-17 10:37] VITALS: BP 112/70
== END 2024-10-17 10:51 | disposition home or self-care (01) ==
LOC: ORSCSDS 08:01
PROVIDERS: Internal Medicine Gastroenterology
PROC: 0DBL8ZX Excision of Transverse Colon, Via Natural or Artificial Opening Endoscopic, Diagnostic (ICD-10-PCS; principal; 2024-10-17 09:30)
PROC: 0DBN8ZX Excision of Sigmoid Colon, Via Natural or Artificial Opening Endoscopic, Diagnostic (ICD-10-PCS; principal; 2024-10-17 09:30)
DX: Z12.11 Encounter for screening for malignant neoplasm of colon (principal); Z86.0101 Personal history of adenomatous and serrated colon polyps; Z80.0 Family history of malignant neoplasm of digestive organs; D12.3 Benign neoplasm of transverse colon; K63.5 Polyp of colon; K57.30 Diverticulosis of large intestine without perforation or abscess without bleeding; K64.4 Residual hemorrhoidal skin tags; Z87.11 Personal history of peptic ulcer disease; E78.5 Hyperlipidemia, unspecified; I25.10 Atherosclerotic heart disease of native coronary artery without angina pectoris; Z87.891 Personal history of nicotine dependence; Z79.899 Other long term (current) drug therapy
CPT/HCPCS: 88305; J2704; J7120

== ENCOUNTER 2025-04-23 16:15 | Emergency (ER) | payer MEDICARE, OTHER ==
[~2025-04-23] VITALS: Ht 177.8 cm; Wt 79.4 kg
[~2025-04-23 16:15] MED LIST changes: +CO Q10100 MG; +CRANBERRY; +DOCU100; +ERGO50000; +MAG GLYCINATE100 MG; +MELATONIN5 M1; +VITAMIN B-650 MG
[2025-04-23 16:39] VITALS: BP 116/80
[2025-04-23 17:21] LABS: BASOPHILS ABSOLUTE AUTO 0.06 K/mm3 (0.00-0.23); BASOPHILS PERCENT AUTO 1 % (0-2); EOSINOPHILS ABSOLUTE AUTO 0.44 K/mm3 (0.00-0.68); EOSINOPHILS PERCENT AUTO 6 % (0-6); Hematocrit 36.0 % (37.0-53.0); Hemoglobin 12.1 g/dL (13.5-17.5); IMMATURE GRAN ABSOLUTE AUTO 0.03 K/mm3 (0.00-0.10); IMMATURE GRAN PERCENT AUTO 0 % (0-1); LYMPHOCYTES ABSOLUTE AUTO 1.99 K/mm3 (0.84-5.20); LYMPHOCYTES PERCENT AUTO 27 % (21-46); MONOCYTES ABSOLUTE AUTO 0.84 K/mm3 (0.16-1.47); MONOCYTES PERCENT AUTO 11 % (4-13); Mean Corpuscular HGB Conc 33.6 g/dL (31.5-36.5); Mean Corpuscular Volume 92 fL (80-100); NEUTROPHILS ABSOLUTE AUTO 4.00 K/mm3 (1.96-9.15); NEUTROPHILS PERCENT AUTO 54 % (41-73); NRBC ABSOLUTE 0.00 K/mm3 (0.00-0.02); NRBC Auto 0.0 /100 WBC (0.0-0.2); Platelet Count 173 K/mm3 (150-400); RDW Coefficient Variation 13.1 % (11.7-14.2); RDW Standard Deviation 44.2 fL (35.1-46.3)
[2025-04-23 17:33] LABS: Source, Urine Clean Catch
[2025-04-23 17:41] LABS: Bilirubin, Urine Neg (Neg); Glucose Qualitative, Urine Neg (Neg); Ketones, Urine Neg (Neg); Leukocyte Esterase, Urine Neg (Neg); Protein, Urine Neg (Neg); Specific Gravity, Urine 1.010 (1.003-1.022); Urobilinogen, Urine NORM (Normal)
[2025-04-23 17:45] LABS: Prothrombin Time Results 11.0 Sec (9.7-11.5)
[2025-04-23 17:48] LABS: Alanine Aminotransfer (ALT/SGP 27.0 U/L (12-78); Albumin, Blood 3.8 g/dL (3.4-5.0); Albumin/Globulin Ratio 1.2 (0.8-1.8); Anion Gap 5.0 mmol/L (3-11); Aspartate Aminotrans (AST/SGOT 27.0 U/L (12-37); Bilirubin, Total 0.5 mg/dL (0.1-1.0); Blood Urea Nitrogen 20.0 mg/dL (8-24); CO2, Blood 27.0 mmol/L (21-32); Calcium, Blood 8.9 mg/dL (8.5-10.1); Chloride, Blood 108.0 mmol/L (98-108); Creatinine, Blood 1.08 mg/dL (0.60-1.20); Globulin, Blood 3.3 g/dL (2.2-4.0); Glucose, Blood 94.0 mg/dL (70-99); Potassium, Blood 4.3 mmol/L (3.5-5.5); Sodium, Blood 136.0 mmol/L (136-145); Total Protein, Blood 7.1 g/dL (6.4-8.2)
[2025-04-23 18:05] LABS: Color, Urine Pale Yellow (P-Yellow)
[2025-04-23 18:07] LABS: White Blood Cells, Urine 0-2 /hpf (0-5)
== END 2025-04-23 22:58 | disposition home or self-care (01) ==
LOC: ER 16:15
PROVIDERS: Student in an Organized Health Care Education/Training Program
DX: R31.9 Hematuria, unspecified (principal); Z79.02 Long term (current) use of antithrombotics/antiplatelets; Z79.899 Other long term (current) drug therapy
CPT/HCPCS: 74177; 80053; 81001; 85025; 85610; 85730; 99284-25; Q9967